=== PATIENT | male | born 1970 | race Caucasian/White ===

== ENCOUNTER 2020-10-23 12:16 | Inpatient (IN) | payer SELFPAY ==
[2020-10-23] VITALS (12 sets, daily range): BP systolic 125–159; BP diastolic 81–105; PULSE 90–118; RESP 17–28; TEMP 36.4–37.2; O2SAT 82–96; BMI 31.1
--- NOTE | 2020-10-23 12:40 | XRR_ITS ---
PROCEDURE INFORMATION: Exam: XR Chest Exam date and time: 10/23/2020 12:45 PM Age: 50 years old Clinical indication: Cough; Additional info: Dyspnea/cough TECHNIQUE: Imaging protocol: XR of the chest. Views: 1 view. COMPARISON: No relevant prior studies available. FINDINGS: Lungs: Peribronchial thickening is suggested. No focal consolidation. Pleural spaces: Unremarkable. No pleural effusion. No pneumothorax. Heart/Mediastinum: Unremarkable. No cardiomegaly. Bones/joints: Unremarkable. XR/XR chest 1V portable [id number] IMPRESSION: Peribronchial thickening. Early pneumonia should be excluded clinically.
--- NOTE | 2020-10-23 12:50 | W.ED.SOB ---
HPI - SOB/Dyspnea General: Chief Complaint: Shortness of Breath/Dyspnea Stated Complaint: upper resp infection getting worse ox 74 this am Time Seen by Provider: 10/23/20 12:30 History of Present Illness: HPI Narrative: 50-year-old male presents emergency room with complaints of severe shortness of breath and cough. He was recently treated with antibiotics and steroids he finished those and symptoms began to get worse again. Cough minimally productive. He does not usually wear oxygen. On arrival here his room air O2 sat is 82% he is tachycardic and tachypneic this improves with oxygen application. MD elicited complaint: shortness of breath, cough and asthma attack Pertinent past history: asthma Onset (ago): week(s) Context: recent illness Timing: constant Severity: moderate Exacerbating factors: lying flat, exertion and coughing Relieving factors: oxygen and rest Known history of: COPD Associated symptoms: Reports chest congestion, cough, diaphoresis, fever(s), myalgias and orthopnea; Deny abdominal pain, chest pain, dizziness, extremity pain, hemoptysis, lightheadedness, nausea, palpitations, paresthesias, polydipsia, polyuria, rash, sense of impending doom, syncope or vomiting Treatment prior to arrival: none Review of Systems Const: Reports: fever(s) and diaphoresis ENMT: Denies: throat pain, ear or mastoid pain, nasal discharge or nasal congestion Card: Reports: orthopnea; Denies: chest pain, palpitations, lightheadedness or syncope Resp: Reports: chest congestion; Denies: hemoptysis GI: Denies: abdominal pain, nausea or vomiting : Denies: flank pain, dysuria, urinary frequency or urinary urgency Musc: Denies: extremity pain Skin/Breast: Denies: rash or pruritus Neuro: Denies: dizziness Endo: Denies: polyuria or polydipsia PFSH ED PFSH: Medical History (Updated 10/24/20 @ 06:28 by Cabrera Prasad DO) Asthma Social History (Updated 10/23/20 @ 17:55 by Josiane Elizalde MD) Smoking and tobacco status: former smoker Quit status (tobacco): has quit using tobacco Alcohol intake: never Physical Exam Const: COMMON NORMALS: no acute distress GENERAL APPEARANCE: cooperative and comfortable ORIENTATION/CONSCIOUSNESS: Yes awake, Yes oriented to person, Yes oriented to place and Yes oriented to time HENMT: COMMON NORMALS: normocephalic, atraumatic and hearing grossly normal bilaterally HEAD & SCALP: normocephalic and atraumatic Neck/C-Spine: COMMON NORMALS: no JVD Resp: AUSCULTATION: rhonchi and wheezes Cardio: COMMON NORMALS: no JVD, regular rhythm and No murmurs present (Cardio) RATE: tachycardic RHYTHM: regular rhythm GI: COMMON NORMALS: Soft to palpation and No hepatosplenomegaly present AUSCULTATION: Yes normoactive bowel sounds PALPATION: Yes Soft to palpation, No Tenderness to palpation present (GI), No Guarding due to palpation present (GI) and Yes No hepatosplenomegaly present Extremity: COMMON NORMALS: normal to inspection, capillary refill normal, no clubbing, cyanosis or edema, no calf tenderness and no pedal edema Neuro: SENSORIUM/ORIENTATION: Yes oriented to person, Yes oriented to place and Yes oriented to time Skin: COMMON NORMALS: no rashes or lesions noted GENERAL SKIN EXAM: no rashes or lesions noted Course Vital Signs: Vital signs: Vital Signs Temperature 98.8 F 10/24/20 04:00 Pulse Rate 109 H 10/24/20 04:00 Respiratory Rate 17 10/24/20 04:00 Blood Pressure 151/80 10/24/20 04:00 Pulse Oximetry 90 10/24/20 04:00 MDM - SOB/Dyspnea MDM Narrative: Medical decision making narrative: Acute asthma exacerbation. His rapid Covid is negative PCR sent out will cover with antibiotics and steroids as well as beta agonist. Discussed with hospitalist orders written Lab Data: Labs: Lab Results 10/23/20 10/23/20 10/23/20 Range/Units 12:00 13:00 13:00 WBC 11.8 H (4.0-10.0) 10^3/ uL RBC 5.26 (4.1-5.3) 10^6/u L Hgb 15.5 (11.7-16.6) g/dL Hct 47.5 (42.0-52.0) % MCV 90.3 (80-94) fL MCH 29.5 (28.0-34.0) pg MCHC 32.6 (30.0-36.0) g/dL RDW 13.1 (12.1-15.1) % Plt Count 294 (130-400) 10^3/c mm MPV 10.5 H (7.4-10.4) fL Neut % (Auto) 77.1 % Lymph % (Auto) 11.1 % Menard % (Auto) 6.8 % Eos % (Auto) 4.1 % Baso % (Auto) 0.4 % Neut # (Auto) 9.08 H (1.8-7.7) 10^3/u L Lymph # (Auto) 1.3 (0.8-4.8) 10^3/u L Menard # (Auto) 0.8 (0.2-0.9) 10^3/u L Eos # (Auto) 0.5 (0.0-0.8) 10^3/u L Baso # (Auto) 0.1 (0.0-0.1) 10^3/u L Nucleated RBC % (a uto) 0 % Nucleated RBCs # 0.0 /100WBC D-Dimer <= 0.27 (0-0.59) ug/mIFE U Specimen Type Sample Site ABG pH (7.35-7.45) ABG pCO2 (35-45) mmHg ABG pO2 (80.0-100.0) mmH g ABG HCO3 (22-26) mmol/L ABG O2 Saturation ABG Base Excess (-2.0-2.0) mmol/ L Loiue Test A-a O2 Gradient (5-10) mmHg Hematocrit (42-52) % Hgb O2 Saturation (95-100) % Carboxyhemoglobin (0.4-20.1) %THgb Methemoglobin (0.4-1.5) % Total Hemoglobin (14-18) g/dL Ionized Calcium (1.1-1.4) mmol/L O2 Delivery Device O2 Liters/Min % FiO2 % Electric Power Machine Operator ID Sodium 141 (136-145) mmol/L Potassium 4.7 (3.5-5.1) mmol/L Chloride 104 (98-107) mmol/L Carbon Dioxide 26 (22-29) mmol/L Anion Gap 15.7 (5-19) BUN 19 (6-20) mg/dL Creatinine 0.9 (0.7-1.2) mg/dL GFR Calculation 90.1 (90-130) mL/min Glucose 132 H (65-115) mg/dL Calculated Osmolal ity 296 H (285-295) mOsm/k g Calcium 8.8 (8.5-10.5) mg/dL Total Bilirubin 0.4 (0.15-1.2) mg/dL AST 21 (0-40) U/L ALT 28 (0-41) U/L Alkaline Phosphata se 88 (40-130) IU/L Total Protein 6.9 (6.6-8.7) g/dL Albumin 4.5 (3.5-5.2) g/dL Globulin 2.4 (1.3-4.6) g/dL Procalcitonin (0-0.5) ng/mL SARS-CoV-2 Ag (Rap id) (Negative) 10/23/20 10/23/20 10/23/20 Range/Units 13:00 13:00 13:22 WBC (4.0-10.0) 10^3/ uL RBC (4.1-5.3) 10^6/u L Hgb (11.7-16.6) g/dL Hct (42.0-52.0) % MCV (80-94) fL MCH (28.0-34.0) pg MCHC (30.0-36.0) g/dL RDW (12.1-15.1) % Plt Count (130-400) 10^3/c mm MPV (7.4-10.4) fL Neut % (Auto) % Lymph % (Auto) % Menard % (Auto) % Eos % (Auto) % Baso % (Auto) % Neut # (Auto) (1.8-7.7) 10^3/u L Lymph # (Auto) (0.8-4.8) 10^3/u L Menard # (Auto) (0.2-0.9) 10^3/u L Eos # (Auto) (0.0-0.8) 10^3/u L Baso # (Auto) (0.0-0.1) 10^3/u L Nucleated RBC % (a uto) % Nucleated RBCs # /100WBC D-Dimer (0-0.59) ug/mIFE U Specimen Type Arterial Sample Site Radial, left ABG pH 7.35 (7.35-7.45) ABG pCO2 53.6 H (35-45) mmHg ABG pO2 71.7 L (80.0-100.0) mmH g ABG HCO3 29.3 H (22-26) mmol/L ABG O2 Saturation 94.5 ABG Base Excess 2.2 H (-2.0-2.0) mmol/ L Louie Test Pos A-a O2 Gradient 15.8 H (5-10) mmHg Hematocrit 50.1 (42-52) % Hgb O2 Saturation 92.5 L (95-100) % Carboxyhemoglobin 1.3 (0.4-20.1) %THgb Methemoglobin 0.8 (0.4-1.5) % Total Hemoglobin 16.4 (14-18) g/dL Ionized Calcium 1.3 (1.1-1.4) mmol/L O2 Delivery Device Nc O2 Liters/Min 4.0 % FiO2 36.0 % Electric Power Machine Operator ID Cak Sodium 142.0 (136-145) mmol/L Potassium 4.5 (3.5-5.1) mmol/L Chloride (98-107) mmol/L Carbon Dioxide (22-29) mmol/L Anion Gap (5-19) BUN (6-20) mg/dL Creatinine (0.7-1.2) mg/dL GFR Calculation (90-130) mL/min Glucose 136.0 H (65-115) mg/dL Calculated Osmolal ity (285-295) mOsm/k g Calcium (8.5-10.5) mg/dL Total Bilirubin (0.15-1.2) mg/dL AST (0-40) U/L ALT (0-41) U/L Alkaline Phosphata se (40-130) IU/L Total Protein (6.6-8.7) g/dL Albumin (3.5-5.2) g/dL Globulin (1.3-4.6) g/dL Procalcitonin 0.05 (0-0.5) ng/mL SARS-CoV-2 Ag (Rap id) Negative (Negative) Discharge Plan Discharge Patient Disposition: Admitted As Inpatient Admit Provider: Josiane Elizalde Clinical Impression: Asthma exacerbation, Hypoxia, Acute respiratory failure with hypoxia Condition: Stable Coding Level of Care Code ED Assault Boat Coxswain for Chg Fwd Exam Comprehensive
[2020-10-23 13:07] LABS: Basophils # 0.1 10^3/uL (0.0-0.1); Basophils % 0.4 %; Eosinophils # 0.5 10^3/uL (0.0-0.8); Eosinophils % 4.1 %; Hematocrit 47.5 % (42.0-52.0); Hemoglobin 15.5 g/dL (11.7-16.6); Lymphocytes # 1.3 10^3/uL (0.8-4.8); Lymphocytes % 11.1 %; Mean Corpuscular HGB Conc 32.6 g/dL (30.0-36.0); Mean Corpuscular Hemoglobin 29.5 pg (28.0-34.0); Mean Corpuscular Volume 90.3 fL (80-94); Mean Platelet Volume 10.5 fL (7.4-10.4); Monocytes # 0.8 10^3/uL (0.2-0.9); Monocytes % 6.8 %; Neutrophils # 9.08 10^3/uL (1.8-7.7); Neutrophils % 77.1 %; Nucleated Red Blood Cells % 0 %; Platelet Count 294 10^3/cmm (130-400); Red Blood Count 5.26 10^6/uL (4.1-5.3); Red Cell Distribution Width 13.1 % (12.1-15.1); White Blood Count 11.8 10^3/uL (4.0-10.0)
[2020-10-23] MEDS: ondansetron 2 mg/ML SDV 2 mL 4 MG IVP (13:08)
[2020-10-23] MEDS: albuterol 8 gm MDI 2 PUFF INHALATION ×4 (13:18→23:31)
[2020-10-23 13:25] LABS: Alanine Aminotransferase 28 U/L (0-41); Albumin Level 4.5 g/dL (3.5-5.2); Alkaline Phosphatase 88 IU/L (40-130); Anion Gap 15.7 (5-19); Aspartate Amino Transferase 21 U/L (0-40); Blood Urea Nitrogen 19 mg/dL (6-20); Calcium 8.8 mg/dL (8.5-10.5); Carbon Dioxide 26 mmol/L (22-29); Chloride 104 mmol/L (98-107); Creatinine Clr Calc Pharmacy 125.3506; Globulin 2.4 g/dL (1.3-4.6); Glomerular Filtration Rate 90.1 mL/min (90-130); Glucose 132 mg/dL (65-115); Osmolality Calculated 296 mOsm/kg (285-295); Potassium 4.7 mmol/L (3.5-5.1); Sodium 141 mmol/L (136-145); Total Bilirubin 0.4 mg/dL (0.15-1.2); Total Protein 6.9 g/dL (6.6-8.7)
[2020-10-23 13:33] LABS: ABG PCO2 53.6 mmHg (35-45); ABG PH Result 7.35 (7.35-7.45); Alveolar-Arterial Oxygen Gradi 15.8 mmHg (5-10); Arterial Blood Gas Hematocrit 50.1 % (42-52); Base Excess ABG 2.2 mmol/L (-2.0-2.0); Blood Gas Allen Test Pos; Blood Gas Operator Identificat CAK; Blood Gas Sample Site Radial, left; Blood Gas Sample Type Arterial; Carboxyhemoglobin 1.3 %THgb (0.4-20.1); HCO3 ABG 29.3 mmol/L (22-26); HGB O2 Sat 92.5 % (95-100); Ionized Calcium Level - ABG 1.3 mmol/L (1.1-1.4); Methemoglobin 0.8 % (0.4-1.5); Oxygen Device NC; Oxygen Saturation ABG 94.5; PO2 ABG 71.7 mmHg (80.0-100.0); Potassium Level - ABG 4.5 mmol/L (3.5-5.0); Total Hemoglobin 16.4 g/dL (14-18)
[2020-10-23 13:46] LABS: SARS Covid-2 Antigen Negative (Negative)
[2020-10-23 14:16] LABS: D Dimer <= 0.27 ug/mIFEU (0-0.59)
[2020-10-23] MEDS: levofloxacin-dextrose 5 % 750 MG/150 ML PREMIX 100 MG IV (15:18)
[2020-10-23 17:08] LABS: Procalcitonin 0.05 ng/mL (0-0.5)
[2020-10-23 17:29] LABS: Influenza A by IFA Negative (Negative); Influenza B by IFA Negative (Negative)
--- NOTE | 2020-10-23 17:52 | PM.HP ---
Providers/Chief Complaint Admitting Physician: Josiane Elizalde MD Primary Care Provider: NAVYA Provider Chief Complaint: upper resp infection getting worse ox 74 this am History of Present Illness Allen Chilel is a 50 year old male with a history of childhood asthma, chronic smoking, had URI approximately 3 weeks ago for which she was treated with 1 week course of antibiotics and steroids and as needed albuterol with some improvement. Upon discontinuing the medications, he stated that he started to feel short of breath again. At the time of onset of symptoms 3 weeks ago he had cough sputum production, no fever and was short of breath and wheezing. Denies any chest pain or hemoptysis. Reports a history of similar episodes every year in the past in the springtime. Has not formally been diagnosed with allergies. Had childhood asthma, used albuterol inhaler as needed. Has never had a PFT in the past. Diagnostics in the ER showed new oxygen requirement of supplemental O2 at 4 L/min, chest x-ray without any acute findings, received albuterol nebulization and Solu-Medrol with improvement in symptoms. He is currently afebrile, saturating 92% on 4 L/min cannula at the time of my assessment, able to converse in full sentences. Denies any fever. Rapid Covid antigen is negative. Review of Systems General: Reports: 10 or more systems reviewed and unremarkable except in HPI and below Const: Denies: fever(s), chills or body aches Eyes: Denies: change in vision, blurry vision or photophobia ENMT: Reports: hoarseness; Denies: throat pain, enlarged tonsils, odynophagia or nasal congestion Card: Denies: chest pain, palpitations, irregular heart rhythm, edema, swelling of feet/ankles, lightheadedness, pre-syncope, dyspnea on exertion or orthopnea Resp: Denies: dyspnea, productive cough, non-productive cough, wheezing, stridor, pain on inspiration, change in phlegm color, hemoptysis or chest congestion GI: Denies: abdominal pain, nausea, vomiting, hematemesis, coffee ground emesis, dysphagia, heartburn, diarrhea, constipation, GI cramping, change in stool character, hematochezia or melena : Denies: flank pain, dysuria, urinary frequency, urinary urgency, urinary hesitancy or hematuria Musc: Denies: neck pain, back pain, extremity pain, joint swelling, joint warmth or deformity Neuro: Denies: headache(s), numbness in extremities, weakness in extremities, sensory changes, difficulty walking, frequent falls, dizziness, vertigo, behavioral changes, Slurred speech present or seizure-like activity Psych: Denies: anxiety, depression, suicidal ideation or homicidal ideation Endo: Denies: polyuria, polydipsia, tired all the time, cold intolerance or hot flashes Joss/Lymph: Denies: easy bruising or easy bleeding Medications/Allergies Home Medications Medication Instructions Recorded Confirmed Last Taken Type albuterol sulfate [ProAir HFA] 2 puff INHALATION Q4H PRN 10/23/20 10/23/20 Unknown History Allergies Allergy/AdvReac Type Severity Reaction Status Date / Time morphine Allergy ADR-Vomitin Verified 10/23/20 12:32 g PFSH Acute PFSH: Medical History (Updated 10/23/20 @ 17:56 by Josiane Elizalde MD) Asthma Social History (Updated 10/23/20 @ 17:55 by Josiane Elizalde MD) Smoking and tobacco status: former smoker Quit status (tobacco): has quit using tobacco Alcohol intake: never Vitals/I&O/Wt Last Vital Signs Temp 97.7 F 10/23/20 16:49 Pulse 101 H 10/23/20 17:36 Resp 18 10/23/20 17:36 BP 147/90 10/23/20 16:49 Pulse Ox 93 10/23/20 17:36 10/23/20 10/23/20 10/23/20 06:59 14:59 22:59 Intake Total 150 / 150 Output Total 200 / 200 Balance -50 / -50 Weight last 48 hrs Weight 104.326 kg Physical Exam Narrative: EXAM NARRATIVE: General: No acute distress, AO x3 HEENT: PERRLA, pupils bilaterally equal and reactive, pallors not present Chest: Normal vesicular breath sounds, no added sounds, equal good air entry bilaterally CVS: S1-S2 regular, no murmurs, no tachycardia, no gallops, no rubs Abdomen: Soft, nontender, no organomegaly, bowel sounds present Neuro: No focal deficits, no facial deformity, AO x3, power 5/5 in all limbs Extremities: no cyanosis, clubbing or edema Data : 10/23/20 13:00 10/23/20 13:00 A&P Assessment and plan (1) Asthma exacerbation: Status: Acute Qualifiers: Asthma severity: severe Asthma persistence: unspecified Qualified Code(s): J45.901 - Unspecified asthma with (acute) exacerbation (2) Hypoxia: Status: Acute Additional A&P Information Patient presenting today with acute approximately 3 weeks after URI. Treated with antibiotics and steroids at the time along with nebulizer with improvement. Possible differentials for his current symptoms include asthma versus COPD exacerbation versus post viral bronchitis. Patient has a history of tobacco use for several years, quit few weeks ago. Has never had a formal PFT. Has a childhood history of asthma, used as needed nebulizers in the past. Reports similar symptoms during each spring at this time of the year which could be indicative of asthma exacerbation. DuoNebs every 4 hours scheduled, albuterol as needed Solu-Medrol 40 mg IV every 8 hours Hold off on antibiotics for now his chest x-ray without any signs of pneumonia, check procalcitonin. Supplemental O2 to keep saturation greater than 92% Home O2 eval prior to discharge Will need PFTs, likely as an outpatient. Rapid Covid antigen negative, PCR pending Patient has not previously been vaccinated. D-dimer negative, lower probability of PE. Attestations Medical Necessity Statement*: Anticipate greater than 2 midnight admission given new oxygen requirement, Acute COPD versus asthma exacerbation, Coding Level of Care Code Acute Reconnaissance Crewmember for Nav Bo Diagnoses Asthma exacerbation J45.901 Asthma severity: severe Asthma persistence: unspecified Hypoxia R09.02
[2020-10-23 18:03] LABS: Add Urine Microscopic? NO; Charge for UA Resulting for Rev
[2020-10-23 18:13] LABS: Bilirubin Urine 1+ (Negative); Blood Urine Neg (Negative); Glucose Urine UA Norm (Normal); Ketones Urine Negative (Negative); Leukocyte Esterase Urine Negative (Negative); Nitrate Urine Negative (Negative); Protein Urine Neg (Negative); Specific Gravity, Urine 1.025 (1.005-1.030); Urine Appearance Clear (CLEAR); Urine Color Yellow (Yellow); Urobilinogen Urine Norm (Negative); pH Urine 5 (5-7)
[2020-10-24] VITALS (17 sets, daily range): BP systolic 129–156; BP diastolic 75–89; PULSE 90–115; RESP 16–20; TEMP 37–37.2; O2SAT 90–97
[2020-10-24] MEDS: albuterol 8 gm MDI 2 PUFF INHALATION ×4 (03:09→15:59)
--- NOTE | 2020-10-24 05:44 | PC.NURSE ---
shift summary patient has slept all night and had no complaints of pain.
[2020-10-24 05:46] LABS: Basophils % 0.1 %; Hematocrit 47.5 % (42.0-52.0); Hemoglobin 15.3 g/dL (11.7-16.6); Lymphocytes # 0.8 10^3/uL (0.8-4.8); Lymphocytes % 4.6 %; Mean Corpuscular HGB Conc 32.2 g/dL (30.0-36.0); Mean Corpuscular Hemoglobin 29.2 pg (28.0-34.0); Mean Corpuscular Volume 90.6 fL (80-94); Mean Platelet Volume 10.9 fL (7.4-10.4); Monocytes # 0.7 10^3/uL (0.2-0.9); Monocytes % 4.3 %; Neutrophils # 14.84 10^3/uL (1.8-7.7); Neutrophils % 90.4 %; Nucleated Red Blood Cells % 0 %; Platelet Count 300 10^3/cmm (130-400); Red Blood Count 5.24 10^6/uL (4.1-5.3); Red Cell Distribution Width 12.8 % (12.1-15.1); White Blood Count 16.4 10^3/uL (4.0-10.0)
[2020-10-24 06:12] LABS: Alanine Aminotransferase 26 U/L (0-41); Albumin Level 4.2 g/dL (3.5-5.2); Alkaline Phosphatase 78 IU/L (40-130); Anion Gap 16.7 (5-19); Aspartate Amino Transferase 18 U/L (0-40); Blood Urea Nitrogen 21 mg/dL (6-20); Calcium 8.7 mg/dL (8.5-10.5); Carbon Dioxide 26 mmol/L (22-29); Chloride 101 mmol/L (98-107); Globulin 3.1 g/dL (1.3-4.6); Glomerular Filtration Rate 79.8 mL/min (90-130); Glucose 131 mg/dL (65-115); Osmolality Calculated 293 mOsm/kg (285-295); Potassium 4.7 mmol/L (3.5-5.1); Sodium 139 mmol/L (136-145); Total Bilirubin 0.3 mg/dL (0.15-1.2); Total Protein 7.3 g/dL (6.6-8.7)
[2020-10-24] MEDS: pantoprazole DR 40 mg Tablet PO (08:59)
[2020-10-24 16:00] LABS: Coronavirus Test Green County Not Detected
--- NOTE | 2020-10-24 16:24 | ECG_ITS ---
[facility] ED Test Date: 2020-10-24 Pat Name: Allen Chilel Department: Room: 268 Gender: Male Electric Wirer: : 1970 Requested By: oJsiane Elizalde Order Number: [id number] Eva MD: Rose Gandhi M.D. Measurements Intervals [place] Rate: 91 P: 85 MD: 187 QRS: 67 QRSD: 94 T: 50 QT: 343 QTc: 423 Interpretive Statements SINUS RHYTHM No previous ECG available for comparison Electronically Signed On 11-01-2020 16:29:48 CDT by Rose Gandhi M.D. [email or web address]
--- NOTE | 2020-10-24 16:24 | P.PN_ITS ---
Subjective Subjective: Interval history: Feels symptomatically improved. Continues to be on nasal cannula 4 L/min. Still with significant wheezing bilateral lower lobes. Covid PCR returned negative, patient off precautions Vitals/I&O/Wt Last Vital Signs Temp 98.6 F 10/24/20 16:00 Pulse 108 H 10/24/20 16:00 Resp 16 10/24/20 16:00 BP 133/80 10/24/20 16:00 Pulse Ox 91 10/24/20 16:00 10/24/20 10/24/20 10/24/20 06:59 14:59 22:59 Intake Total 480 / 480 Balance 480 / 480 Weight last 48 hrs Weight 104.326 kg Physical Exam Narrative: EXAM NARRATIVE: General: No acute distress, AO x3 HEENT: PERRLA, pupils bilaterally equal and reactive, pallors not present Chest: Bilateral diffuse wheezing present in lung bases CVS: S1-S2 regular, no murmurs, no tachycardia, no gallops, no rubs Abdomen: Soft, nontender, no organomegaly, bowel sounds present Neuro: No focal deficits, no facial deformity, AO x3, power 5/5 in all limbs Extremities: no cyanosis, clubbing or edema Data : 10/24/20 05:07 10/24/20 05:07 A&P Assessment and plan (1) Asthma exacerbation: Status: Acute (2) Hypoxia: Status: Acute Additional A&P Information Patient presenting with acute dyspnea approximately 3 weeks after URI. Treated with antibiotics and steroids at the time along with nebulizer with improvement. Possible differentials for his current symptoms include asthma versus COPD exace rbation versus post viral bronchitis. Patient has a history of tobacco use for several years, quit few weeks ago. Has never had a formal PFT. Has a childhood history of asthma, used as needed nebulizers in the past. Reports similar symptoms during each spring at this time of the year which could be indicative of asthma exacerbation. DuoNebs every 4 hours scheduled, albuterol as needed Solu-Medrol 40 mg IV every 8 hours procal negative Supplemental O2 to keep saturation greater than 92% Rapid Covid antigen negative, PCR negative D-dimer negative, lower probability of PE. Tachycardia noted, EKG ordered Attestations Medical Necessity Statement*: still with significant hweezing, will benefit for systemic steroids and scheduled nebs ove rthe last 24 hrs Coding Level of Care Code Acute Locomotive Engineer Electric for Chg Fwd Diagnoses Asthma exacerbation J45.901 Hypoxia R09.02
[2020-10-24] MEDS: budesonide 0.5 mg/2 mL Neb INHALATION (20:30)
[2020-10-24] MEDS: ipratropium-albuterol 3 mL Neb INHALATION ×2 (20:30→23:14)
[2020-10-25] VITALS (16 sets, daily range): BP systolic 111–147; BP diastolic 64–81; PULSE 87–113; RESP 16–20; TEMP 36.6–37.1; O2SAT 89–95
[2020-10-25] MEDS: ipratropium-albuterol 3 mL Neb INHALATION ×5 (03:17→20:56)
[2020-10-25] MEDS: levoFLOXacin 750 mg Tablet PO (05:27)
[2020-10-25 06:01] LABS: Basophils % 0.2 %; Hematocrit 45.6 % (42.0-52.0); Hemoglobin 14.9 g/dL (11.7-16.6); Lymphocytes # 1.1 10^3/uL (0.8-4.8); Lymphocytes % 5.6 %; Mean Corpuscular HGB Conc 32.7 g/dL (30.0-36.0); Mean Corpuscular Hemoglobin 29.4 pg (28.0-34.0); Mean Corpuscular Volume 89.9 fL (80-94); Mean Platelet Volume 11.5 fL (7.4-10.4); Monocytes # 0.9 10^3/uL (0.2-0.9); Monocytes % 4.5 %; Neutrophils # 17.51 10^3/uL (1.8-7.7); Neutrophils % 89.3 %; Nucleated Red Blood Cells % 0 %; Platelet Count 297 10^3/cmm (130-400); Red Blood Count 5.07 10^6/uL (4.1-5.3); White Blood Count 19.6 10^3/uL (4.0-10.0)
[2020-10-25 06:25] LABS: Alanine Aminotransferase 27 U/L (0-41); Albumin Level 4.2 g/dL (3.5-5.2); Alkaline Phosphatase 80 IU/L (40-130); Aspartate Amino Transferase 22 U/L (0-40); Blood Urea Nitrogen 29 mg/dL (6-20); Calcium 8.5 mg/dL (8.5-10.5); Carbon Dioxide 27 mmol/L (22-29); Chloride 100 mmol/L (98-107); Glomerular Filtration Rate 79.8 mL/min (90-130); Glucose 163 mg/dL (65-115); Osmolality Calculated 293 mOsm/kg (285-295); Sodium 137 mmol/L (136-145); Total Bilirubin 0.3 mg/dL (0.15-1.2); Total Protein 7.2 g/dL (6.6-8.7)
[2020-10-25] MEDS: budesonide 0.5 mg/2 mL Neb INHALATION ×2 (07:42→20:56)
[2020-10-25] MEDS: pantoprazole DR 40 mg Tablet PO (08:17)
--- NOTE | 2020-10-25 10:46 | CT_ITS ---
WS: [id number] CTA OF THE CHEST WITH PULMONARY EMBOLISM PROTOCOL TECHNIQUE: High-resolution contrast enhanced CTA of the chest with coronal and sagittal reformatted i mages with pulmonary embolism protocol. MIP images are also reviewed. CLINICAL INFORMATION: evaluate for PE COMPARISON: None. DLP: 1231.[address] scans at [facility] use at least one of these dose optimization techniques: automat ed exposure control; mA and/or kV adjustment per patient size (includes targeted exams where dose is matched to clinical indication); or iterative reconstruction. FINDINGS: Suboptimal contrast bolus. Patient was injected and scanned x2. Total contrast 500 cc Proximal main pulmonary arteries are normal. Proximal segmental pulmonary arteries appear patent. Dis diane segmental and subsegmental pulmonary arteries not well evaluated. Normal caliber thoracic aorta. No mediastinal or hilar lymphadenopathy. Moderate chronic emphysematou s changes. No acute pulmonary infiltrates. No focal consolidation or pleural fluid. CT/CT angio chest PE protcl [id number] IMPRESSION: 1. Suboptimal contrast bolus. Proximal main pulmonary arteries and proximal se gmental pulmonary arteries appear patent. Distal segmental and subsegmental pul monary arteries not well evaluated. 2. Normal caliber thoracic aorta. 3. No acute pulmonary infiltrates. No focal pneumonia or pleural fluid. 4. No other significant findings.
--- NOTE | 2020-10-25 10:47 | USCV_ITS ---
Allen Chilel Age: 50 Gender: M : 1970 Exam Date: 10/25/2020 15:07 Ordering Phys: Josiane Elizalde MD Technologist: Emily Ruth [place]am [place] [facility] [place]: estimate EF, evaluate for cardiomyopathy BP: / HR: 83 Rhythm: Sinus Technical Quality: Adequate MEASUREMENTS (Male / Female) Normal Values 2D ECHO LV Diastolic Diameter PLAX 5.1 cm 4.2 - 5.9 / 3.9 - 5.3 cm LV Systolic Diameter PLAX 2.7 cm IVS Diastolic Thickness 1.2 cm 0.6 - 1.0 / 0.6 - 0.9 cm IVS Systolic Thickness 1.7 cm LVPW Diastolic Thickness 1.1 cm 0.6 - 1.0 / 0.6 - 0.9 cm LVPW Systolic Thickness 1.9 cm LVOT Diameter 2.0 cm LV Ejection Fraction 2D Teich 77.8 % LV Ejection Fraction MOD 2C 59.6 % LV Ejection Fraction 2C AL 58.4 % LA Diameter 3.3 cm LA Width 3.2 cm LA Height 4.3 cm RA Width 3.4 cm RA Height 4.2 cm Aorta at Sinotubular Diameter 3.0 cm M-MODE Aortic Annulus Diameter 3.3 cm LA Ao Ratio MM 1.1 MV E Point Septal Separation 0.4 cm DOPPLER AV Peak Velocity 126.0 cm/s LVOT Peak Velocity 109.0 cm/s AV Area Cont Eq vti 2.4 cm squared AV Area Cont Eq pk 2.8 cm squared MV Peak Velocity 74.0 cm/s MV Area PHT 3.9 cm squared Mitral E to A Ratio 0.9 MV E' Velocity 36.0 cm/s Mitral E to MV E' Ratio 5.0 Mitral E to LV E' Lateral Ratio 4.2 Mitral E to LV E' Septal Ratio 6.0 Right Atrial Pressure 3.0 mmHg PV Peak Velocity 98.0 cm/s RV Acceleration Time 0.1 s RV Ejection Time 0.2 s RV AcT/ET 0.5 FINDINGS Left Ventricle Normal left ventricular size. Grossly LV systolic function is borderline low. Regional wall motion abnormalties can not be assessed because of poor visualization Right Ventricle The right ventricle is normal in size and function. Right Atrium The right atrium is normal in size. Left Atrium The left atrium is normal in size. Mitral Valve Structurally normal mitral valve without significant stenosis or prolapse. There is trace mitral regurgitation. Aortic Valve Structurally normal aortic valve without significant sclerosis or stenosis. There is no aortic regurgitation. Tricuspid Valve Structurally normal tricuspid valve without significant stenosis or regurgitation. Insufficient TR jet to calculate RVSP Pulmonic Valve Structurally normal pulmonic valve without significant stenosis. There is no pulmonic regurgitation. Pericardium Normal pericardium without effusion. Aorta Normal ascending aorta dimension. CONCLUSIONS Technically difficult study with poor ultrasonic windows LV systolic function is grossly borderline reduced. Can not assess regional wall motion abnormalities because of limited visualization Trace Mitral regurgitation is noted No comparison studies are available. For accurate assessment of LV systolic function, recommend limited echocardiogram with contrast Norman Kwok MD (Electronically Signed) Final Date: 26 October 2020 10:45 S
[2020-10-25] MEDS: iohexol 350 mg/mL 100 mL Btl IV ×2 (11:25→11:26)
--- NOTE | 2020-10-25 22:03 | P.PN_ITS ---
Subjective Subjective: Interval history: afberile, on 4lpm NC , Off 02 saturation drops to 86% on RA, with minimal walking drops to ~85%. no chest pain. Sinus tachycardia with HR up to 130bpm today , wheezing improving today Medications: Reviewed: Yes Vitals/I&O/Wt Last Vital Signs Temp 98.8 F 10/25/20 20:00 Pulse 90 10/25/20 21:03 Resp 18 10/25/20 20:55 BP 147/78 10/25/20 20:00 Pulse Ox 92 10/25/20 20:55 10/25/20 10/25/20 10/25/20 06:59 14:59 22:59 Intake Total 480 / 480 240 / 720 Output Total 0 / 0 Balance 0 / 480 480 / 480 240 / 720 Physical Exam Narrative: EXAM NARRATIVE: General: No acute distress, AO x3 HEENT: PERRLA, pupils bilaterally equal and reactive, pallors not present Chest: Bilateral diffuse wheezing present in lung bases CVS: S1-S2 regular, no murmurs, no tachycardia, no gallops, no rubs Abdomen: Soft, nontender, no organomegaly, bowel sounds present Neuro: No focal deficits, no facial deformity, AO x3, power 5/5 in all limbs Extremities: no cyanosis, clubbing or edema Data : 10/25/20 05:16 10/25/20 05:16 A&P Assessment and plan (1) Asthma exacerbation: Status: Acute (2) Hypoxia: Status: Acute Additional A&P Information Patient presenting with acute dyspnea approximately 3 weeks after URI. s/p outpatient treatment with abx and streoids as outpatient with transient improvement, then worsened dyspnea on day of presentation. Possible differentials for his current symptoms include asthma versus COPD exacerbation versus post viral bronchitis. Patient has a history of tobacco use for several years, quit few weeks ago. Has never had a formal PFT. Has a childhood history of asthma, used as needed nebulizers in the past. DuoNebs every 4 hours scheduled, albuterol as needed Solu-Medrol 40 mg IV every 8 hours---> taper to 40mg iv q12h procal negative Supplemental O2 to keep saturation greater than 92% Rapid Covid antigen negative, PCR negative Overall though patient has improving wheezing, his degree of hypoxia and slow improvement appears out of proportion to asthma exacerbation, Today also noted with HR up to 130, sinus tachycardia on EKG. OBtain CTA chest today to r/o PE. Also obtain echocardiogram to evalute for post viral cardiomyopathy. Leukocytosis up to 19, suspect this to be relate dto high dose streoids, taper down today Levaquin for possibility of post viral bronchitis Attestations Medical Necessity Statement*: CTA and echocardiogram Coding Level of Care Code Acute Steam Turbine Assembler for Nav Augustind Diagnoses Asthma exacerbation J45.901 Hypoxia R09.02
[2020-10-26] VITALS (15 sets, daily range): BP systolic 126–157; BP diastolic 81–90; PULSE 73–102; RESP 16–20; TEMP 36.8–37.2; O2SAT 84–95
[2020-10-26] MEDS: ipratropium-albuterol 3 mL Neb INHALATION ×5 (00:20→15:15)
[2020-10-26 05:46] LABS: Basophils % 0.1 %; Hematocrit 43.8 % (42.0-52.0); Hemoglobin 14.4 g/dL (11.7-16.6); Lymphocytes # 0.9 10^3/uL (0.8-4.8); Lymphocytes % 4.5 %; Mean Corpuscular HGB Conc 32.9 g/dL (30.0-36.0); Mean Corpuscular Hemoglobin 29.6 pg (28.0-34.0); Mean Corpuscular Volume 90.1 fL (80-94); Mean Platelet Volume 11.1 fL (7.4-10.4); Monocytes # 0.9 10^3/uL (0.2-0.9); Monocytes % 4.4 %; Neutrophils # 17.94 10^3/uL (1.8-7.7); Neutrophils % 90.4 %; Nucleated Red Blood Cells % 0 %; Platelet Count 294 10^3/cmm (130-400); Red Blood Count 4.86 10^6/uL (4.1-5.3); Red Cell Distribution Width 13.1 % (12.1-15.1); White Blood Count 19.9 10^3/uL (4.0-10.0)
[2020-10-26 06:53] LABS: Alanine Aminotransferase 25 U/L (0-41); Alkaline Phosphatase 73 IU/L (40-130); Anion Gap 16.3 (5-19); Aspartate Amino Transferase 18 U/L (0-40); Blood Urea Nitrogen 29 mg/dL (6-20); Calcium 8.4 mg/dL (8.5-10.5); Carbon Dioxide 26 mmol/L (22-29); Chloride 100 mmol/L (98-107); Creatinine Clr Calc Pharmacy 125.3506; Globulin 2.8 g/dL (1.3-4.6); Glomerular Filtration Rate 90.1 mL/min (90-130); Glucose 120 mg/dL (65-115); Osmolality Calculated 293 mOsm/kg (285-295); Potassium 4.3 mmol/L (3.5-5.1); Sodium 138 mmol/L (136-145); Total Bilirubin 0.3 mg/dL (0.15-1.2); Total Protein 6.8 g/dL (6.6-8.7)
[2020-10-26] MEDS: levoFLOXacin 750 mg Tablet PO (07:16)
[2020-10-26] MEDS: budesonide 0.5 mg/2 mL Neb INHALATION (07:55)
[2020-10-26] MEDS: pantoprazole DR 40 mg Tablet PO (10:36)
--- NOTE | 2020-10-26 17:54 | PM.DCS ---
Discharge Providers Date of Admission: 10/23/20 14:30 Date of Discharge: October 26, 2020 Attending Provider at Admission: Josiane Elizalde MD Attending Provider at Discharge: Josiane Elizalde MD Diagnoses at Discharge Discharge Diagnosis (1) Asthma exacerbation: Status: Acute (2) Acute respiratory failure with hypoxia: Status: Acute (3) Bronchitis: Status: Acute Reason for Visit Reason for Visit: upper resp infection getting worse ox 74 this am Hospital Course Hospital Course Patient presenting with acute dyspnea approximately 3 weeks after URI. s/p outpatient treatment with abx and steroids as outpatient with transient improvement, then worsened dyspnea on day of presentation. Possible differentials for his current symptoms include asthma versus COPD exacerbation versus post viral bronchitis. Patient has a history of tobacco use for several years, quit few weeks ago. Has never had a formal PFT. Has a childhood history of asthma, used as needed nebulizers in the past. DuoNebs every 4 hours scheduled,budesonide 0.5mg BID albuterol as needed werwe used during hospital admission with improvement in wheezing and dyspnea. Solu-Medrol 40 mg IV every 8 hours---> taper to 40mg iv q12h--> discharged with prednisone 5mg dose pack. procal negative Supplemental O2 to keep saturation greater than 92%, home 02 eval qualified him for supplemental 02. Rapid Covid antigen negative, PCR negative Overall though patient has improving wheezing, his degree of hypoxia and slow improvement appears out of proportion to asthma exacerbation, CTA chest was negative for PE. echocardiogram was obtained to evaluate for post viral cardiomyopathy, however this remains pending at time of discharge. Follow up has been ararnged with PCP tomorrow to follow up on results. Leukocytosis up to 19, suspect this to be relate dto high dose streoids Levaquin for possibility of post viral bronchitis x 5 days todal Discharged with Advair, spriva and prn albuterol along with supplemental 02. Will likely need PFTs as outpatient. Physical Exam Narrative: EXAM NARRATIVE: GEN: Awake, alert and oriented, no acute distress CVS: S1S2 N RS: B/L scattered wheezing all areas, improved over day of admission Abd: Soft, nt/nd , bs+ [employer]: no focal neuro deficits Discharge Data Data Completed and Pending: Completed Studies During Hospitalization Category Date Time Status CT angio chest PE protcl [id number] Rout ine Cat Scan 10/25/20 10:46 Completed XR chest 1V idris ble [id number] Stat Exams 10/23/20 12:40 Completed CV echo complete* [id number] Routine Ultrasound 10/25/20 10:47 Completed Labs from last 24 hours 10/26/20 10/26/20 04:51 04:51 WBC 19.9 H RBC 4.86 Hgb 14.4 Hct 43.8 MCV 90.1 MCH 29.6 MCHC 32.9 RDW 13.1 Plt Count 294 MPV 11.1 H Neut % (Auto) 90.4 Lymph % (Auto) 4.5 C[place] % (Auto) 4.4 Eos % (Auto) 0.0 Baso % (Auto) 0.1 Neut # (Auto) 17.94 H Lymph # (Auto) 0.9 [place] # (Auto) 0.9 Eos # (Auto) 0.0 Baso # (Auto) 0.0 Nucleated RBC % (a uto) 0 Nucleated RBCs # 0.0 Sodium 138 Potassium 4.3 Chloride 100 Carbon Dioxide 26 Anion Gap 16.3 BUN 29 H Creatinine 0.9 GFR Calculation 90.1 Glucose 120 H Calculated Osmolal ity 293 Calcium 8.4 L Total Bilirubin 0.3 AST 18 ALT 25 Alkaline Phosphata se 73 Total Protein 6.8 Albumin 4.0 Globulin 2.8 Vitals: Last Vital Signs Temp 98.9 F 10/26/20 15:18 Pulse 98 10/26/20 15:20 Resp 20 H 10/26/20 15:18 BP 136/82 10/26/20 15:18 Pulse Ox 92 10/26/20 15:18 Discharge Plan Discharge Patient Disposition: Home Condition: Stable Prescriptions: New Advair Diskus 500-50 mcg/dose blister with device 1 inh inhalation Q12H 30 Days Qty: 60 RF: 0 prednisone 5 mg tablets,dose pack See Rx Instructions .ROUTE .COMPLEX Qty: 21 RF: 0 Spiriva with HandiHaler 18 mcg capsule, w/inhalation device 1 cap inhalation DAILY Qty: 30 RF: 1 levofloxacin 750 mg tablet 750 mg PO DAILY 5 Days RF: 0 pantoprazole 40 mg Tablet,Delayed Release (Dr/Ec) 40 mg PO DAILY 30 Days Qty: 30 RF: 0 Continued ProAir HFA 90 mcg/actuation HFA aerosol inhaler 2 puff INHALATION Q4H PRN (Reason: Shortness Of Breath) 30 Days Qty: 30 RF: 0 Discharge Orders: Discharge Order (Routine); Ordered 10/26/20 Ordered By: Josiane Elizalde Other Ambulatory Orders: DME: Oxygen (Order) Location: None Selected Ordered By: Josiane Elizalde Referrals: Enoc Arrieta MD [Physician] - 10/27/20 1:30 pm Patient Instructions: Asthma Exacerbation - Adult, Hypoxia (GEN), Opioid Safety Discharge Attestations Time Spent in Discharge Care*: greater than 30 min Quality Metrics Clinical Quality Measures During this hospital stay, did patient experience: None Coding Level of Care Code Acute [facility] FW DC note Diagnoses Asthma exacerbation J45.901 Acute respiratory failure with hypoxia J96.01 Bronchitis J40
[2020-10-26 18:48] LABS: Troponin T (5th) Once 9 ng/L (0-15)
== END 2020-10-26 17:20 | disposition home or self-care (01) | DRG 202 ==
LOC: ER 15:05 → MEDSURG 15:08
PROVIDERS: Admitting Provider Student in an Organized Health Care Education/Training Program; Emergency Provider Family Medicine; Visit Provider Student in an Organized Health Care Education/Training Program
DX: J45.901 Unspecified asthma with (acute) exacerbation (principal); J96.01 Acute respiratory failure with hypoxia; Z87.891 Personal history of nicotine dependence; J20.8 Acute bronchitis due to other specified organisms; Z79.51 Long term (current) use of inhaled steroids
CPT/HCPCS: 36415; 36600; 71045; 71275; 80051; 80053; 81003; 82330; 82805; 84145; 84484; 85025; 85378; 87426; 87635; 87804; 93005; 93306; 94640; 94664; 96374; 96375; 99285; J1956; J2405; J2920; J2930; J3535; J7626; Q9967

== ENCOUNTER → 2023-11-26 15:16 | Outpatient (BNVA) | payer SELFPAY | PROVIDERS: PCP Family Medicine Adult Medicine | DX: J44.9 Chronic obstructive pulmonary disease, unspecified (principal); J45.901 Unspecified asthma with (acute) exacerbation; E66.9 Obesity, unspecified; R73.09 Other abnormal glucose; Z53.20 Procedure and treatment not carried out because of patient's decision for unspecified reasons | CPT/HCPCS: 80053; 80061; 85025 ==

== ENCOUNTER → 2025-04-25 16:13 | Outpatient (BNVA) | payer SELFPAY | PROVIDERS: PCP Family Medicine Adult Medicine | DX: R73.09 Other abnormal glucose (principal) | CPT/HCPCS: 80053; 80061; 83036; 85025 ==